=== PATIENT | female | born 1955 | race Caucasian/White ===

== ENCOUNTER 2019-01-09 10:07 | Outpatient (CLI) | payer OTHER ==
--- NOTE | 2019-01-17 14:59 | MMO ---
Bilateral MAMMO Bilat Screen [facility]. CLINICAL HISTORY: Patient is 63 years old and is seen for screening. The patient has the following family history of breast cancer: cousin female. The patient has no personal history of cancer. The patient has a history of right needle biopsy in 2007 - benign. VIEWS: The views performed were: bilateral craniocaudal and bilateral mediolateral oblique. FILMS COMPARED: The present examination has been compared to prior imaging studies performed at [facility] on 09/10/2015, 11/04/2016 and 12/28/2017. This study has been interpreted with the assistance of computer-aided detection. MAMMOGRAM FINDINGS: There are scattered fibroglandular densities. Finding 1: There is a new focal asymmetry seen in the upper region of the right breast. Finding 2: There are stable benign appearing calcifications seen in both breasts. IMPRESSION: FINDING 1: NEW FOCAL ASYMMETRY IN THE RIGHT BREAST REQUIRES ADDITIONAL EVALUATION. SPOT COMPRESSION IS RECOMMENDED. AN ULTRASOUND EXAM IS RECOMMENDED IF NEEDED. ACR BI-RADS Category 0 - Incomplete: Need additional imaging evaluation. [facility] will notify the patient of the need for additional imaging services. MAMMOGRAPHY NOTE: 1. A negative mammogram report should not delay a biopsy if a dominant of clinically suspicious mass is present. 2. Approximately 10% to 15% of breast cancers are not detected by mammography. 3. Adenosis and dense breasts may obscure an underlying neoplasm.
== END 2019-01-09 10:08 | disposition home or self-care (01) ==
LOC: SCSMAMMO 10:07
PROVIDERS: ATTEND Family Medicine
DX: Z12.31 Encounter for screening mammogram for malignant neoplasm of breast (principal); N64.89 Other specified disorders of breast; Z80.3 Family history of malignant neoplasm of breast
CPT/HCPCS: 77067

== ENCOUNTER 2019-01-23 09:18 | Outpatient (CLI) | payer OTHER ==
--- NOTE | 2019-01-23 09:52 | MMO ---
Right Breast MAMMO Unilat Diag [facility]DI [facility]. CLINICAL HISTORY: Patient is 63 years old and is seen for additional evaluation requested from prior study. The patient has the following family history of breast cancer: cousin female. The patient has no personal history of cancer. The patient has a history of right needle biopsy in 2007 - benign. VIEWS: The views performed were: right craniocaudal spot compression; right mediolateral oblique spot compression; and right mediolateral with tomosynthesis. FILMS COMPARED: The present examination has been compared to prior imaging studies performed at [facility] on 09/10/2015, 11/04/2016 and 12/28/2017, and at [facility] on 01/09/2019. MAMMOGRAM FINDINGS: There are scattered fibroglandular densities. Finding 1: There is a focal asymmetry seen in the upper-outer region of the right breast. Tomosynthesis images show the abnormality to represent superimpostion of normal breast parenchyma. Finding 2: There is a biopsy clip seen in the right breast. There are no suspicious masses, suspicious calcifications, or new areas of architectural distortion. IMPRESSION: THERE IS NO MAMMOGRAPHIC EVIDENCE OF MALIGNANCY. A ROUTINE FOLLOW-UP MAMMOGRAM IN 1 YEAR IS RECOMMENDED. THE RESULTS OF THIS EXAM WERE SENT TO THE PATIENT. ACR BI-RADS Category 2 - Benign finding MAMMOGRAPHY NOTE: 1. A negative mammogram report should not delay a biopsy if a dominant of clinically suspicious mass is present. 2. Approximately 10% to 15% of breast cancers are not detected by mammography. 3. Adenosis and dense breasts may obscure an underlying neoplasm.
== END 2019-01-23 09:19 | disposition home or self-care (01) ==
LOC: BICMAMMO 09:18
PROVIDERS: ATTEND Family Medicine
DX: R92.2 Inconclusive mammogram (principal); Z80.3 Family history of malignant neoplasm of breast
CPT/HCPCS: G0279

== ENCOUNTER 2020-04-08 08:48 | Outpatient (CLI) | payer OTHER ==
--- NOTE | 2020-04-08 09:48 | MMO ---
Bilateral MAMMO Bilat Screen [facility]. CLINICAL HISTORY: Patient is 65 years old and is seen for screening. The patient has the following family history of breast cancer: cousin female. The patient has no personal history of cancer. The patient has a history of right needle biopsy in 2006 - benign. VIEWS: The views performed were: bilateral craniocaudal with tomosynthesis and bilateral mediolateral oblique with tomosynthesis. FILMS COMPARED: The present examination has been compared to prior imaging studies performed at [facility] on 11/04/2016 and 12/28/2017, at [facility] on 01/09/2019, and at [facility] on 01/23/2019. This study has been interpreted with the assistance of computer-aided detection. MAMMOGRAM FINDINGS: There are scattered fibroglandular densities. Finding 1: There are stable benign appearing calcifications seen in both breasts. Finding 2: There is a stable biopsy clip seen in the right breast. There are no suspicious masses, suspicious calcifications, or new areas of architectural distortion. IMPRESSION: THERE IS NO MAMMOGRAPHIC EVIDENCE OF MALIGNANCY. A ROUTINE FOLLOW-UP MAMMOGRAM IN 1 YEAR IS RECOMMENDED. THE RESULTS OF THIS EXAM WERE SENT TO THE PATIENT. ACR BI-RADS Category 2 - Benign finding MAMMOGRAPHY NOTE: 1. A negative mammogram report should not delay a biopsy if a dominant of clinically suspicious mass is present. 2. Approximately 10% to 15% of breast cancers are not detected by mammography. 3. Adenosis and dense breasts may obscure an underlying neoplasm. Reported by: MAGALI JOSE MD Electonically Signed: [id number]
== END 2020-04-08 08:49 | disposition home or self-care (01) ==
LOC: BICMAMMO 08:48
PROVIDERS: ATTEND Family Medicine
DX: Z12.31 Encounter for screening mammogram for malignant neoplasm of breast (principal); Z80.3 Family history of malignant neoplasm of breast; Z91.89 Other specified personal risk factors, not elsewhere classified
CPT/HCPCS: 77063; 77067

== ENCOUNTER 2022-06-29 09:54 | Outpatient (CLI) | payer BC | END 2022-06-29 09:55 | disposition home or self-care (01) | LOC: BICMAMMO 09:54 | PROVIDERS: ATTEND Family Medicine | DX: Z12.31 Encounter for screening mammogram for malignant neoplasm of breast (principal); Z80.3 Family history of malignant neoplasm of breast; Z91.89 Other specified personal risk factors, not elsewhere classified | CPT/HCPCS: 77063; 77067 ==

== ENCOUNTER 2023-02-09 10:31 | Outpatient (CLI) | payer BC, MEDICARE | END 2023-02-09 10:32 | disposition home or self-care (01) | LOC: BICMAMMO 10:31 | PROVIDERS: ATTEND Family Medicine | DX: N64.59 Other signs and symptoms in breast (principal); Z91.89 Other specified personal risk factors, not elsewhere classified; Z80.3 Family history of malignant neoplasm of breast | CPT/HCPCS: G0279 ==

== ENCOUNTER 2024-08-07 11:00 | Outpatient (CLI) | payer BC | END 2024-08-07 11:01 | disposition home or self-care (01) | LOC: BICMAMMO 11:00 | PROVIDERS: ATTEND Family Medicine | DX: Z12.31 Encounter for screening mammogram for malignant neoplasm of breast (principal); Z80.3 Family history of malignant neoplasm of breast; Z91.89 Other specified personal risk factors, not elsewhere classified | CPT/HCPCS: 77063; 77067 ==

== ENCOUNTER 2024-11-13 08:56 | Outpatient (CLI) | payer BC ==
[2024-11-13 10:41] LABS: Prothrombin Time 13.4 sec (12.0-14.7)
[2024-11-13 10:45] LABS: Anion Gap 16 mmol/L (10-20); BUN (Urea Nitrogen) 10 mg/dL (9.8-20.1); Calc. Creatinine Clearance 0 mL/min (70-130); Calcium 9.2 mg/dL (7.8-10.44); Carbon Dioxide 24 mmol/L (23-31); Chloride 107 mmol/L (98-107); Estimated GFR 80; Glucose 108 mg/dL (80-115); Sodium 143 mmol/L (136-145)
[2024-11-13 11:23] LABS: #Basophils Less than 0.03 10x3/uL (0.0-0.2); %Basophils 0.3 % (0.0-1.0); %Eosinophils 6.5 % (0.0-10.0); %Lymphocytes 11.1 % (21.0-51.0); %Monocytes 6.9 % (0.0-10.0); Hemoglobin 13.8 g/dL (12.0-16.0); Mean Corpuscular HGB CONC 32.9 g/dL (32.0-36.0); Mean Corpuscular Hemoglobin 28.7 pg (27.0-31.0); Mean Corpuscular Volume 87.3 fL (78.0-98.0); Mean Platelet Volume 8.7 fL (7.4-10.4); Platelet Count 192 10x3/uL (130-400); RBC Distribution Width 13.2 % (11.5-14.5); Red Blood Cell (RBC) Count 4.81 mill/uL (4.20-5.40)
[2024-11-13 12:23] LABS: Bacteria/HPF None Seen HPF (None Seen); Bilirubin Negative (Negative); Blood, Urine Negative (Negative); Clarity Clear (Clear); Glucose, Urine (Dipstick) Normal (Negative); Ketone, Urine Negative (Negative); Leukocyte 75 Leu/uL (Negative); Nitrite Negative (Negative); Protein, Urine (Dipstick) 30 mg/dL (Neg-Trace); RBC/HPF 0-3 HPF (0-3); Specific Gravity, Urine 1.011 (1.002-1.036); Squamous Epithelial 0-3 HPF (0-3); Urobilinogen Normal mg/dL (Less than 2); WBC/HPF 21-50 HPF (0-3); pH, Urine 6.5 (5.0-9.0)
== END 2024-11-13 08:57 | disposition home or self-care (01) ==
LOC: LABBT 08:56
PROVIDERS: ATTEND Orthopaedic Surgery
DX: Z01.818 Encounter for other preprocedural examination (principal); M17.11 Unilateral primary osteoarthritis, right knee
CPT/HCPCS: 71046; 80048; 81001; 85025; 85610; 87081; 93005; 93010

== ENCOUNTER 2024-11-13 09:54 | Outpatient (CLI) | payer BC | END 2024-11-13 09:55 | disposition home or self-care (01) | LOC: CT 09:54 | PROVIDERS: ATTEND Orthopaedic Surgery | DX: M17.11 Unilateral primary osteoarthritis, right knee (principal) | CPT/HCPCS: 71046; 80048; 81001; 85025; 85610; 87081; 93005; 93010 ==

== ENCOUNTER 2024-11-22 06:31 | Inpatient (IN) | payer BC ==
[2024-11-22] MEDS ORDERED: fentaNYL 50 mcg/mL 1 mL Vial ONE ×2 (06:52→11:29)
[2024-11-22] MEDS ORDERED: Lidocaine 1% PF 5 ML VIAL ONE (06:52)
[2024-11-22] MEDS ORDERED: PROPOFOL 20 ML ONE (06:52)
[2024-11-22] MEDS ORDERED: Midazolam HCl 2 mg/2 ml Vial ONE (06:54)
[2024-11-22] MEDS ORDERED: Promethazine HCl 25 MG/ML VIAL IM PRN ×3 (07:49→10:21)
[2024-11-22] MEDS ORDERED: Ondansetron HCl/PF 4 MG/2 ML Vial IVP PRN (07:49)
[2024-11-22] MEDS ORDERED: Sodium Chloride 0.9% 100 ML ONE (08:20)
[2024-11-22] MEDS ORDERED: Vancomycin 1 GM/200 ML (FROZEN) BAG ONE (08:20)
[2024-11-22] MEDS ORDERED: Tranexamic Acid 1,000 MG/10 ML VIAL ONE (08:20)
[2024-11-22] MEDS ORDERED: Clindamycin/D5W 900 mg/50 ml Premix Bag ONE (08:21)
[2024-11-22] MEDS ORDERED: traMADol HCl 50 MG TAB PO PRN (08:30)
[2024-11-22] MEDS ORDERED: Zolpidem Tartrate 5 MG TAB PO PRN ×2 (08:30→10:21)
[2024-11-22] MEDS ORDERED: HYDROcodone/Acetaminophen 10/325 mg Tablet PO PRN (08:30)
[2024-11-22] MEDS ORDERED: Ropivacaine 0.2% 550 ML 550 ML NERVE BLCK SCH (08:30)
[2024-11-22] MEDS ORDERED: fentaNYL 50 mcg/mL 1 mL Vial SLOW IVP PRN (08:30)
[2024-11-22] MEDS ORDERED: Ondansetron PF 4 MG/2 ML Vial ONE (08:54)
[2024-11-22] MEDS ORDERED: Dexamethasone 20 MG/5 ML VIAL ONE (08:54)
[2024-11-22] MEDS ORDERED: ePHEDrine Sulfate 50 MG/10 ML VIAL ONE (09:01)
[2024-11-22] MEDS ORDERED: Bupivacaine PF 0.5% 30 ML VIAL ONE (09:13)
[2024-11-22] MEDS ORDERED: Ropivacaine 0.5% HCl/PF (150 MG/30 ML VIAL) ONE (09:21)
[2024-11-22] MEDS ORDERED: diphenhydrAMINE 25 MG CAP PO PRN (10:21)
[2024-11-22] MEDS ORDERED: Ondansetron PF 4 MG/2 ML Vial IVP PRN (10:21)
[2024-11-22] MEDS ORDERED: Furosemide 40 MG TAB PO PRN (10:24)
[2024-11-22] MEDS ORDERED: fentaNYL PF 100 MCG/2 ML SYRINGE ONE (10:58)
[2024-11-22] MEDS ORDERED: hydrALAZINE 20 MG/ML VIAL ONE ×2 (10:58→11:29)
[2024-11-22] MEDS ORDERED: Labetalol HCl 100 MG/20 ML VIAL ONE (11:29)
[2024-11-22] MEDS: Ketorolac Tromethamine 30 MG (1 mL) VIAL IVP SCH (12:26)
[2024-11-22] MEDS: Tranexamic Acid 1,000 MG in Sodium Chloride 0.9% 100 ML IVPB SCH (14:16)
[2024-11-22] MEDS: Sodium Chloride 0.9% 1,000 ML IV SCH (14:23)
[2024-11-22] MEDS: Clindamycin/D5W 900 MG in Premix 1 BAG IVPB SCH (14:24)
[2024-11-22] MEDS: Acetaminophen 325 MG TAB PO PRN (14:25)
[2024-11-22] MEDS: traMADol HCl 50 MG TAB PO PRN (14:26)
[2024-11-22] MEDS: Ondansetron PF 4 MG/2 ML Vial IVP PRN (14:27)
[2024-11-22 16:05] VITALS: BMI 29.2
[2024-11-22] MEDS: Vancomycin (BATCH) 1.5 GM in Premix 1 BAG IVPB SCH (21:03)
[2024-11-22] MEDS: Losartan 25 MG TAB PO SCH (21:03)
[2024-11-22] MEDS: Aspirin 81 mg Enteric Coated Tablet PO SCH (21:03)
[2024-11-22] MEDS: Atorvastatin Calcium 40 MG TAB PO SCH (21:03)
[2024-11-22] MEDS: Carvedilol 25 MG TAB PO SCH (21:03)
[2024-11-23] MEDS: Levothyroxine Sodium 125 MCG TAB PO SCH (05:29)
[2024-11-23 07:05] LABS: Hematocrit 32.1 % (36.0-47.0); Hemoglobin 10.4 g/dL (12.0-16.0); Mean Corpuscular HGB CONC 32.4 g/dL (32.0-36.0); Mean Corpuscular Hemoglobin 29.2 pg (27.0-31.0); Mean Corpuscular Volume 90.2 fL (78.0-98.0); Mean Platelet Volume 8.6 fL (7.4-10.4); Platelet Count 181 10x3/uL (130-400); RBC Distribution Width 13.2 % (11.5-14.5); Red Blood Cell (RBC) Count 3.56 mill/uL (4.20-5.40)
[2024-11-23] MEDS: Donepezil HCl 10 MG TAB PO SCH (08:38)
[2024-11-23] MEDS: Ferrous Gluconate 324 MG TAB PO SCH (08:38)
[2024-11-23] MEDS: Allopurinol 300 MG TAB PO SCH (08:38)
[2024-11-23] MEDS: Senokot S 8.6-50 MG TAB PO SCH (08:38)
[2024-11-23] MEDS: cloNIDine 0.1 MG TAB PO SCH (08:39)
[2024-11-23] MEDS: Multivitamin W/ Minerals 1 TAB PO SCH (08:39)
[2024-11-23] MEDS: Sertraline 25 MG TAB PO SCH (08:39)
[2024-11-23] MEDS ORDERED: Aspirin Chewable 81 MG TAB PO SCH (09:00)
[2024-11-23] MEDS: HYDROcodone/Acetaminophen 10/325 mg Tablet PO PRN (09:57)
[2024-11-24 05:58] LABS: Hematocrit 31.3 % (36.0-47.0); Hemoglobin 9.8 g/dL (12.0-16.0); Mean Corpuscular HGB CONC 31.3 g/dL (32.0-36.0); Mean Corpuscular Hemoglobin 28.4 pg (27.0-31.0); Mean Corpuscular Volume 90.7 fL (78.0-98.0); Mean Platelet Volume 8.4 fL (7.4-10.4); Platelet Count 143 10x3/uL (130-400); RBC Distribution Width 13.3 % (11.5-14.5); Red Blood Cell (RBC) Count 3.45 mill/uL (4.20-5.40)
[2024-11-24 08:47] VITALS: BMI 33.0
[2024-11-25 05:18] LABS: Hematocrit 30.9 % (36.0-47.0); Hemoglobin 9.8 g/dL (12.0-16.0); Mean Corpuscular HGB CONC 31.7 g/dL (32.0-36.0); Mean Corpuscular Hemoglobin 28.4 pg (27.0-31.0); Mean Corpuscular Volume 89.6 fL (78.0-98.0); Mean Platelet Volume 8.6 fL (7.4-10.4); Platelet Count 162 10x3/uL (130-400); RBC Distribution Width 13.2 % (11.5-14.5); Red Blood Cell (RBC) Count 3.45 mill/uL (4.20-5.40)
[2024-11-25] MEDS: Ondansetron ODT 4 MG TAB PO PRN (09:08)
[2024-11-25 12:48] VITALS: BP 141/75; TEMP 97.2
== END 2024-11-25 16:57 | disposition home or self-care (01) | DRG 470 ==
LOC: SDC 06:31 → SURG B 13:10 → UNDOADMOB 13:10 → SURG A 13:10 → OBSVTOIN 11-23 13:26
PROVIDERS: ADMIT Orthopaedic Surgery; ATTEND Orthopaedic Surgery
PROC: 0SRC0J9 Replacement of Right Knee Joint with Synthetic Substitute, Cemented, Open Approach (ICD-10-PCS; principal; 2024-11-22)
PROC: 8E0Y0CZ Robotic Assisted Procedure of Lower Extremity, Open Approach (ICD-10-PCS; 2024-11-22)
DX: M17.11 Unilateral primary osteoarthritis, right knee (principal); F10.90 Alcohol use, unspecified, uncomplicated; I10 Essential (primary) hypertension; F41.9 Anxiety disorder, unspecified; E03.9 Hypothyroidism, unspecified; M10.9 Gout, unspecified; Z83.3 Family history of diabetes mellitus; Z79.899 Other long term (current) drug therapy; Z72.0 Tobacco use; Z88.0 Allergy status to penicillin; Z91.048 Other nonmedicinal substance allergy status; Z79.890 Hormone replacement therapy
CPT/HCPCS: 36415; 36416; 85027; 96365; 96375; 96376; A4306; C1713; C1776; C1889; G0378; G0379; J0360; J0665; J1100; J1885; J2250; J2405; J2704; J2795; J3010; J3370; J3490; J7030; Q0162